=== PATIENT | female | born 1970 | race Caucasian/White ===

== ENCOUNTER → 2017-11-14 | Outpatient (CLI) | payer OTHER ==
--- NOTE | 2017-11-14 10:49 | Diagnostic Imaging Report ---
PROCEDURE:US GALLBLADDER COMPARISON:None. INDICATIONS:Right Upper Quadrant Pain FINDINGS: LIVER: Size:16 cm in the right midclavicular line, normal Appearance:Echogenic in appearance. Mass:No focal masses GALLBLADDER: Stones/Sludge:Gallbladder sludge is noted with small gallstones measuring up to 2 mm. Appearance:No wall thickening, pericholecystic fluid or hydrops. Sonographic Ness's Sign:Negative BILE DUCTS: Intrahepatic Ducts:No dilation Extrahepatic Ducts:Common bile duct measures 7 mm. No definite stone. PANCREAS: Visualized portions of the neck and proximal body are normal. RIGHT KIDNEY: Size:10.1 cm in length Echogenicity:Normal Collecting System:No hydronephrosis Stone:None Cyst/Mass:None VESSELS: Aorta:Visualized portions are normal. Inferior Vena Cava:Visualized portions are normal. Main Portal Vein:1.3 cm, normal size with hepatopedal flow. FREE FLUID: No ascites or pleural effusions. CONCLUSION: Cholelithiasis and gallbladder sludge without sonographic evidence of cholecystitis. Dilated CBD measuring up to 7 mm, without definite stone. An MRI/MRCP is suggested for additional evaluation. Fatty liver. Dictated by: JEANA CUADRA M.D. on 11/14/2017 at 10:54 Electronically approved by: JEANA CUADRA M.D. on 11/14/2017 at 10:54
--- NOTE | 2017-11-14 19:44 | Diagnostic Imaging Report ---
Hepatobiliary Scan with Gallbladder Ejection Fraction Clinical information: 47 F with RUQ abdominal pain x6 months Report: Following intravenous administration of 7 millicuries of Tc-99m mebrofenin, dynamic images of the abdomen in the anterior projection were obtained through 25 minutes. Sincalide (CCK analog) 1.5 micrograms was administered intravenously over 30 minutes with additional imaging for determination of gallbladder ejection fraction. Perfusion to the liver is normal. Extraction of tracer from the blood pool by the liver parenchyma is normal. Tracer is seen promptly within the biliary tract. The gallbladder begins to fill by 15 minutes post-injection of tracer and fills adequately. Tracer is seen in the small bowel during the sincalide infusion. The gallbladder ejection fraction with administration of sincalide is 100% (normal greater than 40%). Impression: 1. Filling of the gallbladder excludes the diagnosis of acute cystic duct obstruction/acute cholecystitis. 2. Normal gallbladder ejection fraction of 100% does not support the clinical diagnosis of chronic cholecystitis/gallbladder dyskinesia. Signed by: Dr. Dina Gamez M.D. on 11/14/2017 7:41 PM
== END ==
LOC: US 09:25
PROVIDERS: ATTEND Internal Medicine Gastroenterology
DX: R10.11 Right upper quadrant pain (principal); R11.0 Nausea
CPT/HCPCS: 76705; 78227; A9537

== ENCOUNTER → 2017-11-22 | Outpatient (CLI) | payer OTHER ==
[~2017-11-22] MED LIST: GADOBENATE DIMEGLUMINE 1 ML IV ONE
--- NOTE | 2017-11-22 12:44 | Diagnostic Imaging Report ---
PROCEDURE: MRI ABDOMEN/MRCP WITH AND WITHOUT CONTRAST TECHNIQUE: Axial T1 in and out of phase, axial T2 fat-sat, coronal, T2 with and without fat-sat, COMPARISON: [facility], , US GALLBLADDER, 11/14/2017, 10:08. INDICATIONS: Right-sided abdominal pain, fatty liver, gallstones, dilated CBD FINDINGS: LOWER THORAX: Unremarkable. LIVER: The liver is normal in size, measuring approximately 13.8 cm in the right midclavicular line. No significant signal drop on out of phase images to suggest a steatosis. 1.0 cm T1 hypointense, T2 hyperintense, nonenhancing lesion in hepatic segment KATIA (series 5, image 11), consistent with a simple cyst. No focal enhancing lesions. BILIARY: No intrahepatic biliary ductal dilation. The common bile duct measures approximately 6-7 mm at the taylor hepatis and 3-4 mm at the pancreatic head (series 12, images 8 and 5). Normal smooth luminal contour, without irregularities. Normal tapering to the ampulla. No filling defects or strictures. Small gallstones are noted in the dependent portion of the gallbladder fundus. No wall thickening or pericholecystic fluid. PANCREAS: No mass or ductal dilatation. SPLEEN: No splenomegaly. ADRENALS: No nodules. KIDNEYS: No hydronephrosis or mass in the imaged portion of the kidneys. GI TRACT: Visualized bowel shows no dilation or obstruction. PERITONEUM / RETROPERITONEUM: No upper abdominal free fluid. LYMPH NODES: No upper abdominal lymphadenopathy. VESSELS: Celiac trunk and superior and inferior mesenteric and bilateral renal arteries are patent. Portal, superior mesenteric, and splenic arteries are patent. BONES AND SOFT TISSUES: No abnormal bone marrow signal. Leftward curvature of the lumbosacral spine. Small, fat containing umbilical hernia. Soft tissues are otherwise unremarkable IMPRESSION: 1. Cholelithiasis, without MR evidence of cholecystitis. 2. No intrahepatic biliary ductal dilation. Common bile duct is in the upper limit of normal to borderline dilated, with unremarkable appearance. No MR evidence of choledocholithiasis. 3. No MR evidence of significant hepatic steatosis. Bridger Garcia M.D. Dictated by: Bridger Garcia M.D. on 11/22/2017 at 12:49 Electronically approved by: Bridger Garcia M.D. on 11/22/2017 at 12:49
== END ==
LOC: MRI 08:42
PROVIDERS: ATTEND Internal Medicine Gastroenterology
DX: K76.0 Fatty (change of) liver, not elsewhere classified (principal)
CPT/HCPCS: 74183

== ENCOUNTER 2017-12-05 15:35 | Emergency (ER) | payer OTHER ==
[~2017-12-05] VITALS: Ht 157.5 cm; Wt 71.7 kg
[2017-12-05 16:38] LABS: BASOPHILS # (AUTO) 0.1 (0.0-0.1); BASOPHILS % 0.6 % (0.0-1.0); EOSINOPHILS # (AUTO) 0.3 (0.0-0.4); EOSINOPHILS % 3.4 % (0.0-6.0); HEMATOCRIT 40.7 % (34.2-44.1); HEMOGLOBIN 13.5 g/dL (12.0-16.0); LYMPHOCYTES # (AUTO) 2.5 (1.0-3.2); LYMPHOCYTES % 28.3 % (18.0-39.1); MEAN CORPUSCULAR HGB CONC 33.2 g/dL (31-35); MEAN CORPUSCULAR VOLUME 99.5 fL (81-99); MONOCYTES # (AUTO) 0.5 (0.2-0.8); MONOCYTES % 5.6 % (4.4-11.3); NEUTROPHILS # (AUTO) 5.4 (2.1-6.9); NEUTROPHILS % 61.6 % (38.7-80.0); PLATELET COUNT 280 x10e3/uL (140-360); RED BLOOD COUNT 4.09 x10e6/uL (3.6-5.1); RED CELL DISTRIBUTION WIDTH 12.9 % (11.7-14.4)
[2017-12-05] MEDS ORDERED: MORPHINE SULFATE INJ 4 MG/ML INJ IV ONE ×2 (16:51→21:33)
[2017-12-05] MEDS ORDERED: ONDANSETRON HCL INJ 2 MG/ML VIAL IV ONE (16:51)
[2017-12-05 16:57] LABS: ALANINE AMINOTRANSFERASE 10 IU/L (0-55); ALBUMIN 3.6 g/dL (3.5-5.0); ALBUMIN/GLOBULIN RATIO 1.1 (0.8-2.0); ALKALINE PHOSPHATASE 59 IU/L (40-150); AMYLASE 63 U/L (25-125); BLOOD UREA NITROGEN 9 mg/dL (7-26); BUN/CREATININE RATIO 12 (6-25); CALCIUM 9.5 mg/dL (8.4-10.2); CARBON DIOXIDE 23 mmol/L (22-29); CREATININE, SERUM 0.76 mg/dL (0.57-1.11); EST GLOMERULAR FILTRATION RATE > 60 ML/MIN (60-); GLUCOSE 84 mg/dL (74-118); LIPASE 48 U/L (8-78)
[2017-12-05 17:36] LABS: BILIRUBIN,URINE NEGATIVE (NEGATIVE); CLARITY,URINE SL CLOUDY (CLEAR); COLOR,URINE YELLOW (YELLOW); KETONES,URINE NEGATIVE (NEGATIVE); LEUKOCYTE ESTERASE ,URINE NEGATIVE (NEGATIVE); NITRITE,URINE NEGATIVE (NEGATIVE); PROTEIN,URINE DIPSTICK NEGATIVE (NEGATIVE); URINE UROBILINOGEN 1 mg/dL (0.2 - 1)
[2017-12-05 17:37] LABS: BACTERIA,URINE FEW /HPF; EPITHELIAL CELLS,URINE MODERATE /LPF; RBC,URINE 0-5 /HPF (0-5)
[2017-12-05 17:39] LABS: ANION GAP 14.7 mmol/L (8-16); CHLORIDE 104 mmol/L (98-107); POTASSIUM 3.7 mmol/L (3.5-5.1); SODIUM 138 mmol/L (136-145)
--- NOTE | 2017-12-05 21:43 | Diagnostic Imaging Report ---
PROCEDURE: CT ABDOMEN AND PELVIS WITH CONTRAST TECHNIQUE: The abdomen and pelvis were scanned utilizing a multidetector helical scanner from the diaphragm to the lesser trochanter after the IV administration of 100 cc of Isovue 370 and the oral administration of water. Coronal and sagittal multiplanar reformations were obtained. COMPARISON: [facility], US, US GALLBLADDER, 11/14/2017, 10:08. Patients [facility], MRI, MRI MRCP WWO, 11/22/2017, 9:21. INDICATIONS: ABD PAIN FINDINGS: LOWER THORAX: Unremarkable HEPATOBILIARY: Stable 0.9-1.0 cm simple cyst in hepatic segment KATIA. No other hepatic lesions. No biliary ductal dilatation. Gallbladder is contracted. Punctate hyperdensities noted within the gallbladder fundus likely represent the previously visualized gallstones on ultrasound and MRI. No wall thickening or pericholecystic fluid. SPLEEN: No splenomegaly. PANCREAS: No focal masses or ductal dilatation. ADRENALS: No adrenal nodules. KIDNEYS/URETERS: No hydronephrosis, stones, or solid mass lesions. PELVIC ORGANS/BLADDER: Unremarkable. PERITONEUM / RETROPERITONEUM: No free air or fluid. LYMPH NODES: No lymphadenopathy. VESSELS: Celiac trunk, superior and inferior mesenteric bilateral renal arteries are patent. Portal, superior mesenteric, and splenic veins are patent. Mild atherosclerotic calcification of the abdominal aorta GI TRACT: No bowel dilation or evidence of obstruction. No pericolonic inflammatory changes. BONES AND SOFT TISSUES: No aggressive lytic lesions.. IMPRESSION: 1. Cholelithiasis, without CT evidence of cholecystitis. Please note that the patient has had a prior MRI/MRCP 11/22/2017, gallbladder ultrasound and hepatobiliary scans 11/14/2017 which only showed small gallstones, without cholecystitis, choledocholithiasis and normal gallbladder ejection fraction. 2. No acute abdominopelvic abnormalities. Bridger Garcia M.D. Dictated by: Bridger Garcia M.D. on 12/05/2017 at 21:50 Electronically approved by: Bridger Garcia M.D. on 12/05/2017 at 21:50
--- NOTE | 2017-12-05 23:15 | Diagnostic Imaging Report ---
EXAM: Right Upper Quadrant Ultrasound INDICATION: Abdominal pain \S\[id number] \S\1900 COMPARISON: MRI/MRCP 11/22/2017. Hepatobiliary scan 11/14/2017. Gallbladder ultrasound 11/14/2017. TECHNIQUE: Transverse and longitudinal images of the right upper abdomen were obtained. FINDINGS: Liver: Size: 14.0 cm in the right midclavicular line, normal Appearance: Normal echogenicity, smooth contour Mass: No focal masses Gallbladder: Contracted, which limits evaluation Stones/Sludge: No gallstones are visualized in the current exam. Wall: 0.3 cm Appearance: No wall thickening, pericholecystic fluid or hydrops. Sonographic Ness's Sign: Negative Bile Ducts: Intrahepatic Ducts: No dilatation Extrahepatic Ducts: Common bile duct measures 0.3 cm, no dilatation Pancreas: Obscured by overlying bowel gas. Kidneys: Length: Right 9.2 cm Echogenicity: Normal Collecting System: No hydronephrosis Stone: None Cyst/Mass: None Vessels: Aorta: Visualized portions are normal Inferior Vena Cava: Visualized portions are normal Main Portal Vein: 0.7 cm, normal size with hepatopetal flow. Free Fluid: No ascites or pleural effusion IMPRESSION: 1. Contracted gallbladder, which limits evaluation. No gallstones are visualized in this limited exam. No wall thickening or sonographic evidence of acute cholecystitis. 2. Preliminary report provided by Dr. House 12/05/2017 at 19 00 hours Signed by: Dr. Bridger Garcia M.D. on 12/05/2017 11:12 PM
[2017-12-06] MEDS ORDERED: IOPAMIDOL 370 MG/ML 200 ML INFUS..BTL INJ ONE (01:14)
[2017-12-06] MEDS ORDERED: SODIUM CHLORIDE 0.9% 50ML 50 ML ONE (01:14)
[2017-12-06] MEDS ORDERED: LEVOTHYROXINE PO (12:27)
[2017-12-06] MEDS ORDERED: LEVOTHYROXINE100 MC1 IV (12:27)
[2017-12-06] MEDS ORDERED: PANTOPRAZOLE SO40 MG PO (12:27)
--- OUTSIDE RECORDS SUMMARY | 2018-01-19 03:15 | XMS REPORT ---
[facility] Address Unknown Phone Unavailable Care Team Providers Care Coal Trimmer Name Role Phone YUNIOR YVAN Unavailable Unavailable LARON PERALTA Unavailable Unavailable Problems This patient has no known problems. Allergies, Adverse Reactions, Alerts This patient has no known allergies or adverse reactions. Medications This patient has no known medications. Results Test Description Test Time Test Comments Text Results Atomic Results Result Comments US GALLBLADDER 2017-12-05 23:08:00 [place] [address] Patient Name: ABIOLA NAQVI MR #: [id number] : 1970 Age/Sex: 47/F Req #: [id number] Adm Physician: Ordered by: DEBI STERN CHEMICAL WEIGHER Report #: [id number] Location: ER Room/Bed: __ Procedure: [id number] US/US GALLBLADDER Exam Date: 12/05/17 Exam Time: 0 REPORT STATUS: Signed EXAM: Right Upper Quadrant Ultrasound INDICATION: Abdominal pain COMPARISON: MRI/ MRCP 11/22/2017. Hepatobiliary scan 11/14/2017. Gallbladder ultrasound 2017. TECHNIQUE: Transverse and longitudinal images of the right upper abdomen were obtained. FINDINGS: Liver: Size: 14.0 cm in the right midclavicular line, normal Appearance: Normal echogenicity, smooth contour Mass: No focal masses Gallbladder: Contracted, which limits evaluation Stones/Sludge: No gallstones are visualized in the current exam. Wall: 0.3 cm Appearance: No wall thickening, pericholecystic fluid or hydrops. Sonographic Ness's Sign: Negative Bile Ducts: Intrahepatic Ducts: No dilatation Extrahepatic Ducts: Common bile duct measures 0.3 cm, no dilatation Pancreas: Obscured by overlying bowel gas. Kidneys: Length: Right 9.2 cm Echogenicity: Normal Collecting System: No hydronephrosis Stone: None Cyst/Mass: None Vessels: Aorta: Visualized portions are normal Inferior Vena Cava: Visualized portions are normal Main Portal Vein: 0.7 cm, normal size with hepatopetal flow. Free Fluid: No ascites or pleural effusion IMPRESSION: 1. Contracted gallbladder, which limits evaluation. No gallstones are visualized in this limited exam. No wall thickening or sonographic evidence of acute cholecystitis. 2. Preliminary report provided by Dr. House 12/05/2017 at 19 00 hours Signed by: Dr. Katie Garcia M.D. on 12/05/2017 11:12 PM Dictated By: KATIE GARCIA MD 11 Transcribed By: AMANDA on 12/05/172311 COPY TO: DEBI STERN NP CT ABDOMEN/PELVIS W 2017-12-05 21:50:00 [place] [address] Patient Name: ABIOLA NAQVI MR #: [id number] : 1970 Age/Sex: 47/F Req #: [id number] Adm Physician: Ordered by: DEBI STERN NP Report #: [id number] Location: ER Room/Bed: __ Procedure: [id number] CT/CT ABDOMEN/PELVIS W Exam Date: Exam Time: REPORT STATUS: Signed PROCEDURE: CT ABDOMEN AND PELVIS WITH CONTRAST TECHNIQUE: The abdomen and pelvis were scanned utilizing a multidetector helical scanner from the diaphragm to the lesser trochanter after the IV administration of 100 cc of Isovue 370 and the oral administration of water. Coronal and sagittal multiplanar reformations were obtained. COMPARISON: Patients [facility], US, US GALLBLADDER, 2017, 10:08. Patients [facility], MRI, MRI MRCP WWO, 11/22/2017, 9:21. INDICATIONS: ABD PAIN FINDINGS: LOWER THORAX: Unremarkable HEPATOBILIARY: Stable 0.9-1.0 cm simple cyst in hepatic segment KATIA. No other hepatic lesions. No biliary ductal dilatation. Gallbladder is contracted. Punctate hyperdensities noted within the gallbladder fundus likely represent the previously visualized gallstones on ultrasound and MRI. No wall thickening or pericholecystic fluid. SPLEEN: No splenomegaly. PANCREAS: No focal masses or ductal dilatation. ADRENALS: No adrenal nodules. KIDNEYS/URETERS: No hydronephrosis, stones, or solid mass lesions. PELVIC ORGANS/BLADDER: Unremarkable. PERITONEUM / RETROPERITONEUM: No free air or fluid. LYMPH NODES: No lymphadenopathy. VESSELS: Celiac trunk, superior and inferior mesenteric bilateral renal arteries are patent. Portal , superior mesenteric, and splenic veins are patent. Mild atherosclerotic calcification of the abdominal aorta GI TRACT: No bowel dilation or evidence of obstruction. No pericolonic inflammatory changes. BONES AND SOFT TISSUES: No aggressive lytic lesions.. IMPRESSION: 1. Cholelithiasis, without CT evidence of cholecystitis. Please note that the patient has had a prior MRI/MRCP 11/22/2017, gallbladder ultrasound and hepatobiliary scans 11/14/2017 which only showed small gallstones, without cholecystitis, choledocholithiasis and normal gallbladder ejection fraction. 2. No acute abdominopelvic abnormalities. Katie Garcia M.D. Dictated by: Katie Garcia M.D. on 12/05/2017 at 21:50 Electronically approved by: Katie Garcia M.D. on 12/05/2017 at 21:50 Dictated By: KATIE GARCIA MD [id number] Transcribed By: DEXTER on 12/05/17 6440 COPY TO: DEBI STERN NP MRI MRCP O 2017-11-22 12:49:00 [facility] [address] [place] [address] Patient Name: ABIOLA NAQVI MR #: [id number] : 1970 Age/Sex: 47/F Req #: [id number] Adm Physician: Ordered by: LARON PERALTA MD Report #: [id number] Location: MRI Room/Bed: Procedure: [id number] MRI/MRI MRCP [facility] Exam Date: Exam Time: REPORT STATUS: Signed PROCEDURE: MRI ABDOMEN/MRCP WITH AND WITHOUT CONTRAST TECHNIQUE: Axial T1 in and out of phase, axial T2 fat-sat , coronal, T2 with and without fat-sat, COMPARISON: [facility], US, US GALLBLADDER, 11/14/2017, 10:08. INDICATIONS: Right-sided abdominal pain, fatty liver, gallstones, dilated CBD FINDINGS: LOWER THORAX: Unremarkable. LIVER: The liver is normal in size, measuring approximately 13.8 cm in the right midclavicular line. No significant signal drop on out of phase images to suggest a steatosis. 1.0 cm T1 hypointense , T2 hyperintense, nonenhancing lesion in hepatic segment KATIA (series 5, image 11), consistent with a simple cyst. No focal enhancing lesions. BILIARY: No intrahepatic biliary ductal dilation. The common bile duct measures approximately 6-7 mm at the taylor hepatis and 3-4 mm at the pancreatic head (series 12, images 8 and 5). Normal smooth luminal contour, without irregularities. Normal tapering to the ampulla. No filling defects or strictures. Small gallstones are noted in the dependent portion of the gallbladder fundus. No wall thickening or pericholecystic fluid. PANCREAS: No mass or ductal dilatation. SPLEEN: No splenomegaly. ADRENALS: No nodules. KIDNEYS: No hydronephrosis or mass in the imaged portion of the kidneys. GI TRACT: Visualized bowel shows no dilation or obstruction. PERITONEUM / RETROPERITONEUM: No upper abdominal free fluid. LYMPH NODES: No upper abdominal lymphadenopathy. VESSELS: Celiac trunk and superior and inferior mesenteric and bilateral renal arteries are patent. Portal, superior mesenteric, and splenic arteries are patent. BONES AND SOFT TISSUES: No abnormal bone marrow signal. Leftward curvature of the lumbosacral spine. Small, fat containing umbilical hernia. Soft tissues are otherwise unremarkable IMPRESSION: 1. Cholelithiasis, without MR evidence of cholecystitis. 2. No intrahepatic biliary ductal dilation. Common bile duct is in the upper limit of normal to borderline dilated, with unremarkable appearance. No MR evidence of choledocholithiasis. 3. No MR evidence of significant hepatic steatosis. Katie Garcia M.D. Dictated by: Katie Garcia M.D. on 11/22/2017 at 12:49 Electronically approved by: Katie Garcia M.D. on 11/22/2017 at 12:49 Dictated By: KATIE GARCIA MD 1249 Transcribed By: DEXTER on 11/22/17 1249 COPY TO: LARON PERALTA MD HEPTOBILIARY W PHARM 2017-11-14 19:38:00 [place] [address] Patient Name: ABIOLA NAQVI MR #: [id number] : 1970 Age/Sex: 47/F Req #: [id number] Adm Physician: Ordered by: LARON PERALTA MD Report #: [id number] Location: Room/Bed: _ Procedure: [id number] NM/HEPTOBILIARY W PHARM Exam Date: 11/14/17 Exam Time: 929 REPORT STATUS: Signed Hepatobiliary Scan with Gallbladder Ejection Fraction Clinical information: 47 F with RUQ abdominal pain x6 months Report: Following intravenous administration of 7 millicuries of Tc-99m mebrofenin, dynamic images of the abdomen in the anterior projection were obtained through 25 minutes. Sincalide (CCK analog) 1.5 micrograms was administered intravenously over 30 minutes with additional imaging for determination of gallbladder ejection fraction. Perfusion to the liver is normal. Extraction of tracer from the blood pool by the liver parenchyma is normal. Tracer is seen promptly within the biliary tract. The gallbladder begins to fill by 15 minutes post-injection of tracer and fills adequately. Tracer is seen in the small bowel during the sincalide infusion. The gallbladder ejection fraction with administration of sincalide is 100% ( normal greater than 40%). Impression: 1. Filling of the gallbladder excludes the diagnosis of acute cystic duct obstruction/acute cholecystitis. 2. Normal gallbladder ejection fraction of 100% does not support the clinical diagnosis of chronic cholecystitis/gallbladder dyskinesia. Signed by: Dr. Sid Gamez M.D. on 11/14/2017 7:41 PM Dictated By: SID GAMEZ MD 40 Transcribed By: AMANDA on 11/14/171940 COPY TO: LARON PERALTA MD GALLBLADDER 2017-11-14 10:54:00 [place] [address] Patient Name: ABIOLA NAQVI MR #: [id number] : 1970 Age/Sex: 47/F Req #: [id number] [facility] Physician: Ordered by: LARON PERALTA MD Report #: [id number] Location: US Room/Bed: Procedure: [id number] US/US GALLBLADDER Exam Date: Exam Time: REPORT STATUS: Signed PROCEDURE: US GALLBLADDER COMPARISON: None. INDICATIONS: Right Upper Quadrant Pain FINDINGS: LIVER: Size: 16 cm in the right midclavicular line, normal Appearance: Echogenic in appearance. Mass: No focal masses GALLBLADDER: Stones/Sludge: Gallbladder sludge is noted with small gallstones measuring up to 2 mm. Appearance: No wall thickening, pericholecystic fluid or hydrops. Sonographic Ness's Sign: Negative BILE DUCTS: Intrahepatic Ducts: No dilation Extrahepatic Ducts: Common bile duct measures 7 mm. No definite stone. PANCREAS: Visualized portions of the neck and proximal body are normal. RIGHT KIDNEY : Size: 10.1 cm in length Echogenicity: Normal Collecting System: No hydronephrosis Stone: None Cyst/Mass: None VESSELS: Aorta: Visualized portions are normal. Inferior Vena Cava: Visualized portions are normal. Main Portal Vein: 1.3 cm, normal size with hepatopedal flow. FREE FLUID: No ascites or pleural effusions. CONCLUSION: Cholelithiasis and gallbladder sludge without sonographic evidence of cholecystitis. Dilated CBD measuring up to 7 mm, without definite stone. An MRI/MRCP is suggested for additional evaluation. Fatty liver. Dictated by: JEANA CUADRA M.D. on 11/14/2017 at 10:54 Electronically approved by: JEANA CUADRA M.D. on 11/14/2017 at 10:54 Dictated By : JEANA CUADRA MD 1057 Transcribed By: DEXTER on 11/14/17 COPY TO: LARON PERALTA MD
== END 2017-12-05 23:27 | disposition home or self-care (01) ==
LOC: ER 15:35
DX: R10.11 Right upper quadrant pain (principal); R10.31 Right lower quadrant pain; E05.00 Thyrotoxicosis with diffuse goiter without thyrotoxic crisis or storm; K21.9 Gastro-esophageal reflux disease without esophagitis; Z85.3 Personal history of malignant neoplasm of breast; Z85.850 Personal history of malignant neoplasm of thyroid
CPT/HCPCS: 36415; 74177; 76705; 80053; 81001; 82150; 83690; 85025; 99284; J2270; J2405

== ENCOUNTER → 2017-12-06 | Day surgery (SDC) | payer OTHER ==
[~2017-12-06] MED LIST changes: +FENTANYL CITRATE/PF 100MCG/2 ML INJ ONE; -GADOBENATE DIMEGLUMINE 1 ML IV ONE; +LEVOTHYROXINE PO; +LEVOTHYROXINE100 MC1 IV; +MIDAZOLAM HCL 2 MG/2 ML VIAL ONE; +PANTOPRAZOLE SO40 MG PO; +PROPOFOL IV EMULSION 10 MG/ML 20 ML VIAL ONE
[2017-12-06 15:00] VITALS: BP 107/60
--- NOTE | 2017-12-06 15:08 | Operative Report ---
DATE OF PROCEDURE: December 06, 2017 REFERRING PHYSICIAN: Dr. Kris Willis PROCEDURE PERFORMED: Esophagogastroduodenoscopy with biopsies. INDICATIONS FOR EGD: Heartburn, indigestion, bloating. MEDICATION: Patient was done under MAC. Please see anesthesiologist's note. PROCEDURE: With the patient in the left lateral decubitus position, the flexible fiberoptic Olympus gastroscope was introduced into the esophagus under direct visualization without any difficulty. There was some patchy erythema noted in the distal esophagus. An approximately 5-mm nodule was noted at the GE junction that was biopsied. The scope was then advanced with ease into the stomach, traversing a small sliding hiatal hernia. Mucosa overlying the antrum and the body revealed some patchy erythema and low-grade to moderate edema, and biopsies were obtained and sent to stain for H. pylori. The pylorus was of normal contour and shape. It was intubated with ease, and the scope was advanced all the way to the 2nd portion of the duodenum. The scope was then withdrawn slowly, and biopsies were obtained from the proximal 2nd portion to rule out sprue considering the patient's history of diarrhea. The mucosa overlying the duodenal bulb appeared to be within normal limits. The scope was then withdrawn back into the stomach and retroflexed. Mucosa overlying the fundus and cardia appeared to be within normal limits. The scope was then straightened out. The stomach was decompressed. The scope was subsequently withdrawn. Patient tolerated the procedure well. IMPRESSION 1. Distal esophagitis, mild. 2. Approximately 5-mm nodule at gastroesophageal junction, biopsied. 3. Small sliding hiatal hernia. 4. Gastritis, biopsied. Biopsy sent to stain for H. pylori. 5. Rule out sprue. PLAN: Follow up histology. Continue Protonix 40 mg 1 p.o. a.c. b.i.d. and add Carafate 1 gram p.o. a.c. t.i.d. and nightly. Job#: [id number] cc:KRIS WILLIS DO
== END | disposition home or self-care (01) ==
LOC: OR 11:54
PROVIDERS: ATTEND Internal Medicine Gastroenterology
DX: K29.70 Gastritis, unspecified, without bleeding (principal); K20.9 Esophagitis, unspecified; K31.89 Other diseases of stomach and duodenum; K44.9 Diaphragmatic hernia without obstruction or gangrene; K21.9 Gastro-esophageal reflux disease without esophagitis; K80.80 Other cholelithiasis without obstruction; J43.9 Emphysema, unspecified; E03.9 Hypothyroidism, unspecified; F17.210 Nicotine dependence, cigarettes, uncomplicated; Z88.8 Allergy status to other drugs, medicaments and biological substances; Z91.030 Bee allergy status; Z68.29 Body mass index [BMI] 29.0-29.9, adult
CPT/HCPCS: 43239; 81025; J2250

== ENCOUNTER → 2018-02-02 | Day surgery (SDC) | payer OTHER ==
--- NOTE | 2018-01-30 10:50 | Diagnostic Imaging Report ---
PROCEDURE: X-RAY CHEST, TWO VIEWS COMPARISON: None. INDICATIONS: PREOPERATIVE CHEST XRAY FOR GALLBLADDER REMOVAL FINDINGS: LUNGS: No consolidations or edema. PLEURA: No effusions or pneumothorax. HEART \T\ MEDIASTINUM: The heart is within normal size-limits. BONES \T\ SOFT TISSUES: No acute findings. CONCLUSION: No acute thoracic abnormality. Dictated by: Carl Pak M.D. on 01/30/2018 at 10:58 Electronically approved by: Carl Pak M.D. on 01/30/2018 at 10:58
[2018-01-30 10:55] LABS: BASOPHILS # (AUTO) 0.1 (0.0-0.1); BASOPHILS % 0.7 % (0.0-1.0); EOSINOPHILS # (AUTO) 0.3 (0.0-0.4); EOSINOPHILS % 3.3 % (0.0-6.0); HEMATOCRIT 43.2 % (34.2-44.1); HEMOGLOBIN 14.1 g/dL (12.0-16.0); LYMPHOCYTES % 21.9 % (18.0-39.1); MEAN CORPUSCULAR HEMOGLOBIN 32.9 pg (28-32); MEAN CORPUSCULAR HGB CONC 32.6 g/dL (31-35); MEAN CORPUSCULAR VOLUME 100.9 fL (81-99); MONOCYTES # (AUTO) 0.5 (0.2-0.8); MONOCYTES % 5.4 % (4.4-11.3); NEUTROPHILS # (AUTO) 6.2 (2.1-6.9); NEUTROPHILS % 68.4 % (38.7-80.0); PLATELET COUNT 275 x10e3/uL (140-360); RED BLOOD COUNT 4.28 x10e6/uL (3.6-5.1); RED CELL DISTRIBUTION WIDTH 12.3 % (11.7-14.4)
[2018-01-30 11:19] LABS: CLARITY,URINE HAZY (CLEAR); COLOR,URINE YELLOW (YELLOW)
[2018-01-30 11:20] LABS: BILIRUBIN,URINE NEGATIVE (NEGATIVE); KETONES,URINE NEGATIVE (NEGATIVE); LEUKOCYTE ESTERASE ,URINE NEGATIVE (NEGATIVE); NITRITE,URINE NEGATIVE (NEGATIVE); PROTEIN,URINE DIPSTICK NEGATIVE (NEGATIVE); URINE UROBILINOGEN 0.2 mg/dL (0.2 - 1)
[2018-01-30 11:41] LABS: ALANINE AMINOTRANSFERASE 10 IU/L (0-55); ALBUMIN 3.8 g/dL (3.5-5.0); ALKALINE PHOSPHATASE 66 IU/L (40-150); ANION GAP 13.9 mmol/L (8-16); BLOOD UREA NITROGEN 9 mg/dL (7-26); BUN/CREATININE RATIO 12 (6-25); CALCIUM 9.5 mg/dL (8.4-10.2); CARBON DIOXIDE 24 mmol/L (22-29); CHLORIDE 105 mmol/L (98-107); CREATININE, SERUM 0.78 mg/dL (0.57-1.11); EST GLOMERULAR FILTRATION RATE > 60 ML/MIN (60-); GLUCOSE 90 mg/dL (74-118); POTASSIUM 3.9 mmol/L (3.5-5.1); SODIUM 139 mmol/L (136-145)
[~2018-02-02] MED LIST changes: +ACETAMINOPHEN 1000 MG/100 ML IV ONE; +BREO; +BUPIVACAINE 0.25%/EPI 30ML SDV INJ ONE; +DEXAMETHASONE SOD PHOS INJ 4 MG/ML VIAL ONE; +GLYCOPYRROLATE INJ 1MG/ 5 ML SYR ONE; +HYDROCODONE/APAP 7.5MG-325MG 1 EA TAB ONE; +LIDOCAINE HCL 2% LOCAL INJ 5 ML SDV VIAL INJ ONE; +MORPHINE SULFATE 2 MG/ML SYR ONE; +NEOSTIGMINE 5 MG/5ML SYR ONE; +ONDANSETRON HCL INJ 2 MG/ML VIAL ONE; +ROCURONIUM BROMIDE 10 MG/ML 5ML VIAL ONE; +SEVOFLURANE INHAL SOLN 250 ML PEN BTL ONE; +TYLENOL WITH C1 EACH PO; +[UNRECOGNIZED DRUG - OTHER]
[2018-02-02 12:39] VITALS: BP 108/50
--- NOTE | 2018-02-02 15:12 | Operative Report ---
DATE OF PROCEDURE: February 02, 2018 PREOPERATIVE DIAGNOSIS: Cholecystitis and cholelithiasis. POSTOPERATIVE DIAGNOSIS: Cholecystitis and cholelithiasis OPERATION PERFORMED: Laparoscopic cholecystectomy. WHARF TENDER HEAD: Dr. Jose A Wilkins. ANESTHESIA: General endotracheal. COMPLICATIONS: None. ESTIMATED BLOOD LOSS: Minimal. DESCRIPTION OF PROCEDURE: With the patient lying in bed in the supine position under good general endotracheal anesthesia, the abdomen was prepped with Betadine solution and draped in the usual manner. A Veress needle was introduced into the umbilicus and pneumoperitoneum was established without any difficulty. An 11 mm trocar was placed through a small umbilical hernia that the patient had and a 10 mm video laparoscope was placed into the intraabdominal cavity. Three 5 mm trocars were then placed in the right subcostal region. Video laparoscopy at this point revealed the gallbladder that had a mass like appearance or large stone at the top of the gallbladder. The rest of the abdominal exploration was otherwise within normal limits. The peritoneum overlying the neck of the gallbladder was then opened and the cystic duct was identified. The cystic duct was then followed to its junction with the common duct. Cystic duct was then circumferentially dissected away from the common duct, doubly clipped and divided. The cystic artery had an anterior and posterior branch and both of these were individually clipped and divided. The gallbladder was then slowly and carefully taken off the liver bed using the cautery scissors and perfect hemostasis was ascertained. The gallbladder was grasped through the umbilical port and removed without any difficulty. Video laparoscopy was then again carried out. The liver bed was found to be perfectly dry. All of the excess fluid was aspirated. The pneumoperitoneum was evacuated and all the trocars were removed under direct vision. The midline fascia at the umbilicus including the small hernia was closed with a [id number] of 0 Vicryl. All layers were infiltrated on the way out with solution of 0.25% Marcaine. Subcutaneous tissue was approximated with 3-0 Vicryl and the skin was closed with subcuticular 5-0 Vicryl. Benzoin, Steri-Strips, and Band-Aids were applied. The sponge, lap, and needle count was correct. Patient tolerated the procedure well and returned to the recovery room in stable condition. Job#: [id number] VAS
== END | disposition home or self-care (01) ==
LOC: OR 06:51
PROVIDERS: ATTEND Surgery
DX: K80.10 Calculus of gallbladder with chronic cholecystitis without obstruction (principal); K42.9 Umbilical hernia without obstruction or gangrene; J45.909 Unspecified asthma, uncomplicated; J44.9 Chronic obstructive pulmonary disease, unspecified; E03.9 Hypothyroidism, unspecified; K21.9 Gastro-esophageal reflux disease without esophagitis; K44.9 Diaphragmatic hernia without obstruction or gangrene; R00.1 Bradycardia, unspecified; F41.9 Anxiety disorder, unspecified; Z88.8 Allergy status to other drugs, medicaments and biological substances; F17.200 Nicotine dependence, unspecified, uncomplicated; Z01.810 Encounter for preprocedural cardiovascular examination; Z01.812 Encounter for preprocedural laboratory examination; Z01.818 Encounter for other preprocedural examination
CPT/HCPCS: 47562; 71046; 80053; 81003; 81025; 85025; 88304; 93005; C1766; J0131; J1100; J2001; J2250; J2270; J2405; J2704; J3490